=== PATIENT | female | born 1995 | race American Indian/Alaskan Native ===

== ENCOUNTER 2016-08-03 11:53 | Emergency (ER) | payer SELFPAY ==
[2016-08-03 12:11] VITALS: BP 145/78
--- NOTE | 2016-08-03 12:22 | Emergency Department Report ---
Chief Complaint: Medical Clearance Stated Complaint: PANIC ATTACK Time Seen by Provider: 08/03/16 12:16 - HPI History of Present Illness: Patient here reports 40 minutes ago she started stuttering and uncontrollable tremors to RT upper ext. Reports global headache with bodyaches at 10/10. Denies N/V/D. denies head injury. Denies fever or chills. Ptient said she smoked tobaccoless hukka this morning. Denies drug use. Patient with similar episode in 2013 and was diagnosed with panic attack. She said that it started after they gave her morphine. - ROS Review of Systems: All systems are negative unless stated in HPI above - Exam Vital Signs: Vital Signs 08/03/16 12:03 Temperature 98.1 F Pulse Rate 114 H Respiratory 28 H Rate Blood Pressure 145/78 O2 Sat by Pulse 100 Oximetry Physical Exam: General: This is a 20 yo female well nourished well developed and appears anxious and shaky CV: S1S2. Tachycardia @114 Lungs: CTAB. PT hyperventilating with Resp. rate of 28 Mini-Neuro: GCS @15. Stuttered speech. A&oriented x3. No facial drooping. MSE screening note: Focused history and physical exam performed. Due to findings the following was ordered:see mdm ED Medical Decision Making - Medical Decision Making MDM:1: seen by provider in triage 2: Protocol implemented for labs and/or Diagnostics 3: Patient to be seen by provider in main ED ED Disposition for MSE Condition: Stable
== END 2016-08-03 12:18 | disposition left against medical advice (07) ==
LOC: ED 11:53
DX: R51 Headache (principal); M79.1 Myalgia; Z53.21 Procedure and treatment not carried out due to patient leaving prior to being seen by health care provider